=== PATIENT | male | born 1975 | race Caucasian/White ===

== ENCOUNTER 2019-04-29 07:03 | Day surgery (SDC) | payer MEDICAID ==
[2019-04-25 14:45] LABS: BASOPHILS % (AUTO) 0.6 % (0-1); EOSINOPHILS # (AUTO) 0.3 X10'3 (0-0.9); MEAN CORPUSCULAR HEMOGLOBIN 30.5 PG (27.0-31.0); MEAN CORPUSCULAR HGB CONC 33.9 g/dL (33.0-36.5); MEAN CORPUSCULAR VOLUME 90.1 FL (78-98); MEAN PLATELET VOLUME 9.3 FL (7.4-10.4); MONOCYTES # (AUTO) 0.7 X10'3 (0-0.9); MONOCYTES % (AUTO) 7.8 % (2-12); NEUTROPHILS # (AUTO) 5.6 X10'3 (1.8-7.7); NEUTROPHILS % (AUTO) 64.6 % (42-75); PRE OP HEMATOCRIT 42.1 % (42.0-52.0); PRE OP HEMOGLOBIN 14.3 g/dL (14.0-17.9); PRE OP PLATELET COUNT 175 X10'3 (140-440); RED BLOOD COUNT 4.68 X10'6 (4.70-6.10); RED CELL DISTRIBUTION WIDTH 13.6 % (11.5-14.5)
[2019-04-25 14:50] LABS: HEMOGLOBIN A1C 10.2 % (4.5-6.2)
[2019-04-25 14:58] LABS: ALBUMIN 3.7 G/DL (3.4-5.0); ALBUMIN/GLOBULIN RATIO 1.1 (1.1-1.5); ALKALINE PHOSPHATASE 103 IU/L (46-116); BLOOD UREA NITROGEN 17 MG/DL (7-18); BUN/CREATININE RATIO 18.5 (5.4-32.0); CALCIUM 8.7 MG/DL (8.5-10.1); CHLORIDE 105 MMOL/L (99-107); CREATININE 0.92 MG/DL (0.60-1.10); PRE OP ALT 26 U/L (30-65); PRE OP ANION GAP 6 (8-16); PRE OP AST 10 U/L (10-37); PRE OP BILIRUB, TOTAL 0.6 MG/DL (0.0-1.0); PRE OP POTASSIUM 3.7 MMOL/L (3.4-5.1); PRE OP SODIUM 137 MMOL/L (135-145); TOTAL CARBON DIOXIDE 26.1 MMOL/L (24-32); TOTAL PROTEIN 7.1 G/DL (6.4-8.2); eGFR 89 ML/MIN
[2019-04-25 15:01] LABS: PRE OP GLUCOSE 315 MG/DL (70-104)
[2019-04-25 15:24] LABS: CLARITY,URINE CLEAR (Clear); COLOR,URINE STRAW (Yellow); GLUCOSE, URINE >=1000 mg/dl (Neg); KETONES,URINE NEGATIVE (Neg); LEUKOCYTE ESTERASE ,URINE NEGATIVE (Neg); NITRITES, URINE NEGATIVE (Neg); OCCULT BLOOD,URINE NEGATIVE (Neg); PH,URINE 6.5 (4.8-8.0); PROTEIN,URINE NEGATIVE (Neg)
[2019-04-25 15:35] LABS: UA COLLECTION TYPE CLN CATCH MIDSTREAM
[2019-04-25 15:48] LABS: BACTERIA,URINE NONE SEEN /HPF (Neg); RBC,URINE NONE SEEN /HPF (0-2); SQUAMOUS EPITHELIAL CELL,UR FEW /LPF (FEW); WBC,URINE 0-4 /HPF (0-4)
[~2019-04-29] VITALS: Ht 167.6 cm; Wt 81.4 kg
[2019-04-29] VITALS (9 sets, daily range): BP systolic 112–132; BP diastolic 72–87
[~2019-04-29 07:03] MED LIST: ALOG25TA2 PO; ASPI-611 PO; ATOR40TA PO; FAMO20TA8 PO; GABA-530 PO; GLIP5TAB13 PO; INSU100C10 SQ; LANTUS SQ; LISI-604 PO; METF-517 PO
[2019-04-29] MEDS ORDERED: cefazolin/dext.iso 2gm/100 ML IV ONE (07:15)
[2019-04-29] MEDS ORDERED: famotidine 20mg tablet PO ONE (07:15)
[2019-04-29] MEDS ORDERED: ringers solution, lacted 1,000 ML IV SCH (07:15)
[2019-04-29] MEDS ORDERED: insulin regular, human 10 units/0.1 ml syringe IV ONE (08:15)
[2019-04-29] MEDS ORDERED: BUPIVAcaine/PF 2.5 mg/ml (0.25%) 30ml vial ONE (09:49)
[2019-04-29] MEDS ORDERED: LIDOcaine 1% 30ml preserv. free vial ONE (09:49)
[2019-04-29] MEDS ORDERED: fentaNYL/PF 50MCG/1 ML 2ML syringe ONE ×2 (10:01→10:26)
[2019-04-29] MEDS ORDERED: midazolam 2 mg/2 ml injection ONE (10:01)
[2019-04-29] MEDS ORDERED: LIDOcaine 1%/PF 5ML 10 MG/ML VIAL ONE (10:12)
[2019-04-29] MEDS ORDERED: propofol inj 20 ML IV ONE (10:12)
--- NOTE | 2019-04-29 10:40 | NUR ---
Received from OR via BED , accompanied by Anesthesiologist DR GRADY and report given by Anesthesiolgist. PATIENT WAKING UP, DENIES PAIN, V/S WNL, NEUROVASCULAR CHECKLS INTACT, 20G PIV TO RUE, SCD ON, DRESSING TO BACK CDI
== END 2019-04-29 11:40 | disposition home or self-care (01) ==
LOC: PAS 07:03 → EDSEX 09:15 → PAS 11:40
PROVIDERS: ATTEND Surgery
DX: L72.3 Sebaceous cyst (principal); I10 Essential (primary) hypertension; E11.40 Type 2 diabetes mellitus with diabetic neuropathy, unspecified; K21.9 Gastro-esophageal reflux disease without esophagitis; Z79.4 Long term (current) use of insulin; Z79.899 Other long term (current) drug therapy; Z79.82 Long term (current) use of aspirin; Z98.890 Other specified postprocedural states
CPT/HCPCS: 11404; 36415; 80053; 81001; 82948; 83036; 85025; 93005; J0690; J1815; J2001; J2250; J2704; J3010; J3490; A6449; A7000; J7120